=== PATIENT | male | born 1940 | race Caucasian/White ===

== ENCOUNTER 2019-07-21 15:52 | Emergency (ER) | payer MEDICARE, SELFPAY ==
--- NOTE | ~2019-07-21 | XR_ITS ---
EXAMINATION: XR abdomen NG/feed tube insert EXAM DATE: 07/21/2019 16:56 INDICATION: Feeding placement. TECHNIQUE: Frontal projection(s) of the abdomen for interpretation. There is no prior study for dinora haider. FINDINGS: Feeding tube tip and side-port project over left upper quadrant, adequate. Moderate lower thoracic, large upper lumbar bridging endplate osteophytes. Nonobstructive bowel gas pattern. There a re cholecystectomy clips. IMPRESSION: ET tube in position. Reviewed, dictated and finalized at location A. IMPRESSION: ET tube in position.
--- NOTE | ~2019-07-21 | CT_ITS ---
EXAMINATION: CT brain wo con EXAM DATE: 07/21/2019 16:08 INDICATION: Fall, head injury. TECHNIQUE: Spiral CT of the head was performed without contrast. Axial, coronal and sagittal images were reviewed. The dose-length product (DLP) for this examination was 681.00 mGy-cm. The exposure w as tailored according to patient size, and iterative reconstruction (ASIR) was used as additional dos e reduction technique. There is no prior study for comparison. FINDINGS: There is approximately 7 cm acute hemorrhage centered in the left occipital lobe, with asso ciated surrounding vasogenic edema and large amount of intraventricular extension in the left lateral ventricle extending into the 3rd and 4th ventricles. Patient is at significant risk of developing ob structive hydrocephalus from the intraventricular hemorrhage. There is about 10 mm of rightward subfa lcine herniation. No uncal herniation at present. Small amount of subarachnoid hemorrhage at the left vertex. There is moderate microangiopathy and cerebral atrophy. Bilateral cataract surgery. 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 There is left frontal contusion and laceration without underlying fracture. IMPRESSION: 1. Left occipital centered 7 cm acute intraparenchymal hemorrhage, midline shift and intraventricula r extension. Recommend emergent neurosurgical evaluation for likelihood of developing obstructive hyd rocephalus. 2. Small left vertex subarachnoid hemorrhage. 3. Left frontal scalp laceration, contusion.. I discussed intraparenchymal hemorrhage with Isrrael Domingo MD at 07/21/2019 16:11 CDT. Reviewed, dictated and finalized at location A. IMPRESSION: 1. Left occipital centered 7 cm acute intraparenchymal hemorrhage, midline jonathan ft and intraventricular extension. Recommend emergent neurosurgical evaluation for likelihood of developing obstructive hydrocephalus. 2. Small left vertex subarachnoid hemorrhage. 3. Left frontal scalp laceration, contusion.. I discussed intraparenchymal hemorrhage with Isrrael Domingo MD at 07/21/2019 16:11 CDT.
--- NOTE | ~2019-07-21 | CT_ITS ---
EXAMINATION: CT cervical spine wo con EXAM DATE: 07/21/2019 16:12 INDICATION: Fall, head injury. TECHNIQUE: Spiral CT of the cervical spine was performed without contrast. Axial images were reviewe d. Coronal and sagittal reformatted images were also reviewed. The dose-length product (DLP) for thi s examination was 440.77 mGy-cm. The exposure was tailored according to patient size (auto mA exposu re control), and iterative reconstruction (ASIR) was used as additional dose reduction technique. ere is no prior study for comparison. FINDINGS: Large cervical thoracic endplate osteophytes, with acute fracture line suspected at the C5- 6 level without displacement. Also probable acute fracture at the bridging osteophytes of C7-T1. Thes e findings indicated on sagittal image 63. No evidence of middle or posterior column fracture. The o dontoid process is intact. Pre-dens space is normal. Prevertebral soft tissue is normal. There are no soft tissue abnormalities identified. There is no disc space widening or traumatic vertebral bod y subluxation suspected. There is advanced cervical arthropathy A detailed level by level evaluation of spondylosis can be added as addendum if requested. IMPRESSION: Large cervical endplate osteophytes with probable acute fractures at the C5-6 and C7-T1 l evels. I discussed cervical endplate osteophyte fractures with Isrrael Domingo MD at 07/21/2019 16:18CDT. Reviewed, dictated and finalized at location A. IMPRESSION: Large cervical endplate osteophytes with probable acute fractures a t the C5-6 and C7-T1 levels. I discussed cervical endplate osteophyte fractures with Isrrael Domingo MD at 07/21/2019 16:18CDT.
--- NOTE | ~2019-07-21 | XR_ITS ---
EXAMINATION: XR chest ET placement EXAM DATE: 07/21/2019 16:56 INDICATION: Intracranial hematoma left occipital lobe. TECHNIQUE: Portable AP frontal chest x-ray was obtained. Comparison is made to prior examination from 02/16/2008. FINDINGS: Endotracheal tube is about 6 cm above the adam. Feeding tube is in position. There may be ill-defined bibasilar atelectasis or infiltrate. The cardiomediastinal silhouette is prominent but m agnified on this AP technique. There is aortic arteriosclerosis. There is no pneumothorax suspected. There are no pleural effusions. Moderate-sized bridging endplate osteophytes, diffuse idiopathic skel etal hyperostosis. IMPRESSION: 1. ET tube tip could be safely advanced 1-2 cm. 2. Ill-defined bibasilar opacity suspected, could be atelectasis or infection. Reviewed, dictated and finalized at location A.
[2019-07-21 15:50] VITALS: BP 172/56; PULSE 77; RESP 20; TEMP 36.7; O2SAT 97
[2019-07-21 16:01] VITALS: BP 193/89; PULSE 82; RESP 20; O2SAT 95
--- NOTE | 2019-07-21 16:05 | ED.AMS ---
HPI - Altered Mental Status General Chief Complaint: Fall Stated Complaint: FALL Time Seen by Provider: 07/21/19 16:01 History of Present Illness HPI narrative: Patient presents via EMS after a fall. He was found down by a lifter driver. EMS reported that initially he was lucid able to give his name and follow instructions. During transport his ability to talk decreased. Here he is unable to give his name, or follow instructions. He does not appear to be in pain. He has dried blood on his face and hands, with a laceration on his forehead. This daughter arrived, with the information that he has A. fib and is on a blood thinner. She does not know which one. She thinks her dad had surgery at [place], but will call her siblings to find out, where he would be transferred, and what his CODE STATUS is. She said he usually converses normally, but does not always follow instructions, because he is stubborn. The daughter reports that he wants no machines, but would accept CPR. Related Data Home Medications Medication Instructions Recorded Confirmed losartan 07/21/19 metoprolol tartrate 07/21/19 metoprolol tartrate 07/21/19 pravastatin 07/21/19 tramadol-acetaminophen tablet 07/21/19 warfarin 07/21/19 Allergies Allergy/AdvReac Type Severity Reaction Status Date / Time Penicillins Allergy Mild Hives / Unverified 06/01/08 13:34 Red Face Review of Systems Review of Systems: Narrative: Review of systems is not available because of the patient's mental state. [facility] Past Medical History Medical History (Updated 07/21/19 @ 17:40 by Diya Martínez MD) A-fib Chronic anticoagulation Exam Narrative: Exam Narrative: GENERAL: Elderly gentleman, with dried blood on his face hands and arms, giving eye contact but no spontaneous speech. Able to say a few cognitive words together, but does not follow instructions. HEAD: Normocephalic, forehead laceration, no longer bleeding. EYES: PERRLA and EOMI. pupils 2 mm. ENT: Nares clear, no rhinorrhea or epistaxis. Mucous membranes moist. NECK: Supple. CHEST: Clear to auscultation. No respiratory distress. HEART: Regular rate and rhythm. No murmur heard. Normal peripheral pulses. ABDOMEN: Soft, nontender, nondistended, normal active bowel sounds. EXTREMITIES: Normal range of motion. No edema. SKIN: Warm, dry, no rash. NEURO: Moves arms and legs, alert. PSYCH: Flat affect. Course Reevaluation(s) Reevaluation #1: Spoke to the daughter several times about the critical situation. She has several siblings in contact with her. They know that he is going to [place]. Even though she said that he would not have wanted to be on a machine, she agreed to intubate for this critical time. Date: 07/21/19 Time: 17:45 Consultations Consultation #1: Called [place] access line and spoke to the neurosurgeon,Dr. Haley. He recommends intubation and sending to the ED. He wants mannitol, Keppra, and either FFP or KCentra if the INR is elevated. Talked to Dr. Wells in the ED, and he accepts. [facility] came quickly and transported the patient. Date: 07/21/19 Time: 17:44 Consultation #2: [place] ED called back, and asked for the INR which was 2.6, and I told him that the radiologist reading was to advance the ET tube 1 to 2 cm. Date: 07/21/19 Time: 17:50 Vital Signs Vital signs: Vital Signs Temperature 98.0 F 07/21/19 15:50 Pulse Rate 77 07/21/19 15:50 Respiratory Rate 20 07/21/19 15:50 Blood Pressure 172/56 H 07/21/19 15:50 Pulse Oximetry 97 07/21/19 15:50 Temperature 98.0 F 07/21/19 15:50 Pulse Rate 80 07/21/19 17:11 Respiratory Rate 16 07/21/19 17:11 Blood Pressure 188/88 H 07/21/19 17:11 Pulse Oximetry 100 07/21/19 17:11 Procedures Intubation Intubation #1: Intubation Date: 07/21/19 Intubation Time: 17:45 Time out performed: Yes sedative: Etomidate Mg Given: 20 paralytic: Succinylcholine Mg Given: 150
[2019-07-21 16:14] VITALS: BP 216/77; PULSE 65; RESP 20; O2SAT 95
--- NOTE | 2019-07-21 16:17 | PC.NURSE ---
SPOKE WITH WILIAN FROM PHARMACY PER SHONNA OLIVEIRA WHO IS HAVING PROBLEMS ORDERING VITAMIN K. WILIAN FROM PHARMACY STATES THAT HE WILL TUBE UP THE VITAMIN K 10MG FOR THE PT.
[2019-07-21] MEDS: PHYTONADIONE ADULT INJ 10 MG in DEXTROSE 5% IN WATER 50 ML 100 MG IVPB (16:24)
--- NOTE | 2019-07-21 16:25 | PC.NURSE ---
SPOKE WITH SHONNA OLIVEIRA WHO WANTS PT TO HAVE MANNITOL AND 1G KEPPRA STAT.
[2019-07-21] MEDS: levETIRAcetam 1000MG/NACL100ML 1,000 MG/100 ML BAG 400 MG IVPB (16:31)
[2019-07-21 16:33] LABS: Basophils Absolute Auto 0.1 K/mm3 (0.0-0.1); Basophils Percent Auto 0.4 % (0.2-1.2); Eosinophils Absolute Auto 0.1 K/mm3 (0-0.3); Eosinophils Percent Auto 0.5 % (0-4.4); Hemoglobin 13.9 g/dL (14.0-18.0); Immature Granulocyte Absolute 0.06 K/mm3 (0.00-0.031); Immature Granulocyte Percent A 0.4 % (0-0.5); Lymphocytes Absolute Auto 2.48 K/mm3 (0.9-3.2); Lymphocytes Percent Auto 17.7 % (18.3-44.2); Mean Corpuscular HGB Conc 33.9 g/dl (32-36); Mean Corpuscular Hemoglobin 32.3 pg (26-34); Mean Corpuscular Volume 95.3 fl (80-100); Mean Platelet Volume 10.6 fl (7.4-10.4); Monocytes Absolute Auto 0.9 K/mm3 (0.1-0.6); Monocytes Percent Auto 6.2 % (2.6-8.5); Neutrophils Absolute Auto 10.5 K/mm3 (1.3-6.7); Neutrophils Percent Auto 74.8 % (45.5-73.1); Platelet Count Result 178 k/mm3 (150-375); Red Cell Distribution Width 13.4 % (11.5-14.5)
--- NOTE | 2019-07-21 16:36 | PC.NURSE ---
decision to intube for transport
--- NOTE | 2019-07-21 16:38 | PC.NURSE ---
spoke with Chuch from pharm. States to bolus 120ml of the 20% mannitol.
--- NOTE | 2019-07-21 16:40 | PC.NURSE ---
ANAY from Dr Martínez for the following. 1641-20 etomidate, 100mg succ for RSI 1643- 50mg additional succ size 8 et tube, 23 at the lip,visable chest rise, OG inserted. x ray verified. 1640 mannitol infusing
[2019-07-21 16:46] VITALS: BP 221/107; PULSE 96; RESP 16; O2SAT 100
[2019-07-21 16:48] LABS: Alanine Aminotransferase 17 U/L (4-50); Albumin Level 4.3 g/dL (3.5-5.1); Alkaline Phosphatase 72 U/L (38-126); Aspartate Amino Transferase 32 U/L (17-59); Bilirubin,Total 0.8 mg/dL (0.2-1.3); Blood Urea Nitrogen 13 mg/dL (9-20); Calcium 9.3 mg/dL (8.4-10.2); Carbon Dioxide 23 mmol/L (22-30); Chloride 104 mmol/L (98-107); Estimated Glomerular Filt Rate 53; Glucose 122 mg/dL (75-110); Sodium 133 mmol/L (137-145)
--- NOTE | 2019-07-21 16:49 | PC.NURSE ---
propofol initiated at 10mcg/kg/min per ilya from Dr Martínez
--- NOTE | 2019-07-21 17:01 | PC.NURSE ---
6mg versed given per VORB from Dr Martínez.
[2019-07-21] MEDS: ONDANSETRON INJ 4 MG/2 ML VIAL (17:04)
--- NOTE | 2019-07-21 17:10 | PC.NURSE ---
PT LEFT WITH [facility] FLIGHT TEAM TO [facility].
[2019-07-21 17:11] VITALS: BP 188/88; PULSE 80; RESP 16; O2SAT 100
[2019-07-21 17:11] LABS: INR 2.6; Prothrombin Time 27.4 Seconds (11.1-14.7)
== END 2019-07-21 17:10 | disposition short-term general hospital (02) ==
LOC: ANHED 16:17
PROVIDERS: Emergency Provider Emergency Medicine
DX: S06.350A Traumatic hemorrhage of left cerebrum without loss of consciousness, initial encounter (principal); R41.82 Altered mental status, unspecified; I48.91 Unspecified atrial fibrillation; Z79.01 Long term (current) use of anticoagulants; W19.XXXA Unspecified fall, initial encounter
CPT/HCPCS: 31500; 36415; 70450; 72125; 80053; 85025; 85610; 96365; 96375; 99291; J1953; J2405; J2704; J3430; L0140